=== PATIENT | male | born 1985 | race Caucasian/White ===

== ENCOUNTER 2025-01-15 16:33 | Emergency (ER) | payer MEDICAID ==
[2025-01-15] MEDS: Acetaminophen/HYDROcodone 325-5 MG Tab PO ONE ×2 (18:51→20:33)
[2025-01-15] MEDS: Acetaminophen 325 MG Tab PO ONE (20:33)
[2025-01-15] MEDS ORDERED: Naloxone 0.4 MG/ML SDV IVPUSH PRN (21:37)
[2025-01-15] MEDS: HYDROmorphone 0.5 MG/0.5 ML Syringe IM ONE (21:48)
[2025-01-16] MEDS: Ketorolac 30 MG/ML SDV IM ONE (00:32)
[2025-01-16 00:39] VITALS: BP 107/69; PULSE 78
== END 2025-01-16 01:16 | disposition home or self-care (01) ==
LOC: JP.ED 16:33
DX: S92.002A Unspecified fracture of left calcaneus, initial encounter for closed fracture (principal); W11.XXXA Fall on and from ladder, initial encounter; Y93.89 Activity, other specified
CPT/HCPCS: 29515; 72100; 72190; 73552; 73562; 73590; 73610; 73700; 76377; 96372; 99284; A9270; J1885